=== PATIENT | male | born 1975 | race Caucasian/White ===

== ENCOUNTER 2017-09-30 13:14 | Outpatient (CLI) | payer OTHER ==
--- NOTE | 2017-09-30 16:19 | MRI Report ---
EXAM: MRI LUMBAR SPINE WITHOUT CONTRAST EXAM DATE: 09/30/2017 02:26 PM. CLINICAL HISTORY: Chronic burning pain in the low back and sacral region. COMPARISON: None. TECHNIQUE: Multiplanar, multisequence T1-weighted and fluid-sensitive sequences of the lumbar spine f rom T12 to S1 without contrast. Other: None. FINDINGS: Spinal Cord: The conus terminates at L1. The conus medullaris and cauda equina are unremarkable. Alignment: Grade 2 L5 on S1 spondylolisthesis. Slight L4 on L5 retrolisthesis. Bone Marrow: Five [id number] lumbar vertebral bodies are assumed. Bilateral L5 spondylolysis. No acute vertebral body collapse. Prominent mixed signal degenerative endplate signal changes at L5-S1. Much less prominent degenerative endplate signal changes with Schmorl's nodes at the L2 inferior end plate. Disk Levels/Facets: T12-L1: Unremarkable. L1-L2: Unremarkable. L2-L3: Mild degenerative disk disease. Minimal broad-based bulge. No stenosis. L3-L4: Unremarkable. L4-L5: Mild to moderate degenerative disk disease. Minimal facet arthropathy. Shallow broad-based pos terior disk protrusion with annular fissure but no focal nerve root compression or significant stenos is. L5-S1: Bilateral L5 spondylolysis. Grade 2 L5 on S1 spondylolisthesis. Moderate to marked secondary L 5-S1 level degenerative disk disease. Severe deformity and stenosis of both neural foramina. Patent c entral canal. Minimal facet arthropathy. Musculature: Normal. No edema or fatty atrophy. Other: None. IMPRESSION: 1. Prominent degenerative disk disease at L5-S1 where there is a grade 2 L5 on S1 spondylolisthesis a nd bilateral L5 spondylolysis. 2. Severe stenosis and deformity of the L5-S1 neural foramina. 3. Degenerative disk disease at L4-L5 with posterior disk protrusion with annular fissure but no sign ificant stenosis at this level. Comment: The following findings are so common in adults without low back pain that while we report th eir presence, they must be interpreted with caution and in the context of the clinical situation. (Re amol Powell et al, Spine 2001) Prevalence of findings in patients without low back pain: Disk degeneration (any evidence): 92% Disk desiccation/T2 signal loss: 83% Disk height loss: 56% Disk bulge: 64% Disk protrusion: 32% Annular tear/high intensity zone: 38% [facility] Referring Provider Line: [phone] SITE ID: [id number]
--- NOTE | 2017-10-01 15:38 | MRI Report ---
EXAM: MRI SACRUM/SI JOINTS WITHOUT CONTRAST EXAM DATE: 09/30/2017 02:10 PM. CLINICAL HISTORY: Chronic burning pain in the low back and sacral area. Spondylolisthesis. COMPARISON: None. TECHNIQUE: Multiplanar, multisequence T1-weighted and fluid-sensitive sequences of the sacrum/sacroil iac joints without contrast. Other: None. FINDINGS: Lower lumbar spine: Approximately 1.3 cm anterior subluxation L5 on S1 with small amount of diskogeni c endplate edema and prominent marginal osteophytes. Bilateral L5 pars defects. Marrow signal within the remainder of the sacrum within normal limits. Sacroiliac joints appear symmetric and unremarkable . No joint effusion or abnormal joint space widening. No erosive change. Muscular tendinous structures: No evidence of significant muscle edema, atrophy or fatty replacement within the [id number]. Visualized portions of the sciatic nerves appear symmetric and within samuel l limits. IMPRESSION: 1. Grade 2 L5-S1 spondylolisthesis. 2. Otherwise normal appearance of the sacrum and sacroiliac joints. [facility] MUSCULOSKELETAL RADIOLOGY SECTION Referring Provider Line: [phone] SITE ID: [id number]
== END 2017-09-30 13:15 | disposition home or self-care (01) ==
LOC: DI 13:14
PROVIDERS: ATTEND General Practice
DX: M51.36 Other intervertebral disc degeneration, lumbar region (principal); M47.896 Other spondylosis, lumbar region; M47.897 Other spondylosis, lumbosacral region; M51.37 Other intervertebral disc degeneration, lumbosacral region; M43.17 Spondylolisthesis, lumbosacral region; M51.26 Other intervertebral disc displacement, lumbar region
CPT/HCPCS: 72148; 72195

== ENCOUNTER 2021-08-13 11:07 | Day surgery (SDC) | payer OTHER, BC ==
[2021-08-13 11:34] LABS: BASOPHILS # (AUTO) 0.1 10^3/uL (0.0-0.1); BASOPHILS % (AUTO) 0.5 %; EOSINOPHILS # (AUTO) 0.1 10^3/uL (0.0-0.7); EOSINOPHILS % (AUTO) 0.5 %; HCT - HEMATOCRIT 44.3 % (42.0-52.0); HGB - HEMOGLOBIN 15.7 g/dL (14.0-18.0); LYMPHOCYTES # (AUTO) 1.9 10^3/uL (1.5-3.5); LYMPHOCYTES % (AUTO) 11.7 %; MEAN CORPUSCULAR HEMOGLOBIN 32.2 pg (27.0-31.0); MEAN CORPUSCULAR HGB CONC 35.4 g/dL (32.0-36.0); MONOCYTES # (AUTO) 0.9 10^3/uL (0.0-1.0); MONOCYTES % (AUTO) 5.5 %; NEUTROPHILS # (AUTO) 13.3 10^3/uL (1.5-6.6); NEUTROPHILS % (AUTO) 81.5 %; PLT - PLATELET COUNT 261 10^3/uL (130-450); RED BLOOD COUNT 4.87 10^6/uL (4.70-6.10); RED CELL DISTRIBUTION WIDTH 12.2 % (12.0-15.0); WHITE BLOOD COUNT 16.3 x10^3/uL (4.8-10.8)
[2021-08-13 11:35] LABS: BILIRUBIN,URINE NEGATIVE (NEGATIVE); CLARITY,URINE CLEAR (CLEAR); GLUCOSE, URINE (UA) NEGATIVE (NEGATIVE); KETONES,URINE (UA) NEGATIVE (NEGATIVE); LEUKOCYTE ESTERASE, URINE NEGATIVE (NEGATIVE); NITRITE,URINE NEGATIVE (NEGATIVE); OCCULT BLOOD,URINE NEGATIVE (NEGATIVE); PROTEIN,URINE NEGATIVE (NEGATIVE); UROBILINOGEN,URINE 0.2 (NORMAL) E.U./dL (NORMAL)
[2021-08-13 11:47] LABS: ALBUMIN 4.8 g/dL (3.2-5.5); ALBUMIN/GLOBULIN RATIO 1.4 (1.0-2.2); BILIRUBIN,TOTAL 0.9 mg/dL (0.2-1.0); CALCIUM 9.5 mg/dL (8.5-10.3); CREATININE 1.1 mg/dL (0.6-1.2); TOTAL PROTEIN 8.2 g/dL (6.7-8.2)
--- NOTE | 2021-08-13 13:14 | ED Physician Documentation ---
PD HPI ABD PAIN - Stated complaint Stated Complaint: ABDOMINAL PAIN - Chief complaint Chief Complaint: Abd Pain - History obtained from History obtained from: Patient - Additional information Additional information: The patient comes to the emergency department chief complaint of right lower quadrant abdominal pain that started earlier today after he had a bowel movement. The patient states he had been feeling fairly well, but since the pain began, and the patient has had a sense of chills. He states pain is keeps getting worse. He does not have any history of surgical procedures on his abdomen. No history of kidney stones. Patient denies any stool changes or blood in his urine. No dysuria. He states he is otherwise fairly healthy. No other complaints at this time. He states that hurts a lot if he laughs or coughs. Review of Systems Ten Systems: 10 systems reviewed and negative Constitutional: reports: Reviewed and negative Eyes: reports: Reviewed and negative Ears: reports: Reviewed and negative Nose: reports: Reviewed and negative Throat: reports: Reviewed and negative Cardiac: reports: Reviewed and negative Respiratory: reports: Reviewed and negative GI: reports: Abdominal Pain. denies: Nausea, Vomiting : reports: Reviewed and negative Skin: reports: Reviewed and negative Musculoskeletal: reports: Reviewed and negative Neurologic: reports: Reviewed and negative Psychiatric: reports: Reviewed and negative Endocrine: reports: Reviewed and negative Immunocompromised: reports: Reviewed and negative PD PAST MEDICAL HISTORY - Present Medications Home Medications: Ambulatory Orders Medication Instructions Recorded Confirmed No Known Home Medications 08/13/21 08/13/21 - Allergies Allergies/Adverse Reactions: Allergies Allergy/AdvReac Type Severity Reaction Status Date / Time No Known Drug Allergies Allergy Verified 08/13/21 11:19 PD ED PE NORMAL - Vitals Vital signs reviewed: Yes - General General: Alert and oriented X 3, No acute distress, Well developed/nourished, Other (The patient appears mildly uncomfortable otherwise in no distress.) - HEENT HEENT: Atraumatic, PERRL, EOMI, Moist mucous membranes - Neck Neck: Supple, no meningeal sign - Cardiac Cardiac: RRR, No murmur, Strong equal pulses - Respiratory Respiratory: No respiratory distress, Clear bilaterally - Abdomen Abdomen: Soft, Non distended, Other (Moderate tenderness without rebound or guarding right lower quadrant) - Back Back: No CVA TTP - Derm Derm: Normal color, Warm and dry, No rash - Extremities Extremities: No deformity, No edema, No calf tenderness / cord - Neuro Neuro: Alert and oriented X 3, rib puller 2-12 intact, Normal speech, Other (Grossly intact) - Psych Psych: Normal mood, Normal affect Results - Vitals Vitals: Vital Signs - 24 hr 08/13/21 08/13/21 11:16 13:16 Temperature 36.7 C 37.1 C Heart Rate 90 93 Respiratory 16 16 Rate Blood Pressure 145/101 H 141/90 H O2 Saturation 98 98 Oxygen O2 Source Room air - Labs Labs: Laboratory Tests 08/13/21 08/13/21 08/13/21 11:27 11:29 11:29 WBC 16.3 H RBC 4.87 Hgb 15.7 Hct 44.3 MCV 91.0 MCH 32.2 H MCHC 35.4 RDW 12.2 Plt Count 261 MPV 9.0 Neut # (Auto) 13.3 H Lymph # (Auto) 1.9 [place] # (Auto) 0.9 Eos # (Auto) 0.1 Baso # (Auto) 0.1 Absolute Nucleated RBC 0.00 Nucleated RBC % 0.0 Sodium 140 Potassium 4.0 Chloride 100 L Carbon Dioxide 29 Anion Gap 11.0 BUN 18 Creatinine 1.1 Estimated GFR (MDRD) 73 L Glucose 90 Calcium 9.5 Total Bilirubin 0.9 AST 40 ALT 56 Alkaline Phosphatase 53 Total Protein 8.2 Albumin 4.8 Globulin 3.4 Albumin/Globulin Ratio 1.4 Lipase 26 Urine Color YELLOW Urine Clarity CLEAR Urine pH 5.0 Ur Specific [place] 1.025 Urine Protein NEGATIVE Urine Glucose (UA) NEGATIVE Urine Ketones NEGATIVE Urine Occult Blood NEGATIVE Urine Nitrite NEGATIVE Urine Bilirubin NEGATIVE Urine Urobilinogen 0.2 (NORMAL) Ur Leukocyte Esterase NEGATIVE Ur Microscopic Review NOT INDICATED Urine Culture Comments NOT INDICATED - Rads (name of study) CT abdomen and pelvis Radiology: Final report received, EMP read indepedently, See rad report (Acute appendicitis) PD MEDICAL DECISION MAKING - ED course Complexity details: reviewed results, re-evaluated patient, considered dif ferential, d/w patient ED course: The patient was significantly tender in the right lower quadrant, and laboratory studies showed an elevated white blood cell count of 16,000. I felt the patient should have a CT scan of the abdomen and pelvis to evaluate for especially appendicitis, but also for kidney stone and other potential pathology. The patient declined symptomatic management. CT scan showed findings consistent with appendicitis. I spoke with Dr. Leger, who agreed to come and see the patient in the emergency department, with plan for admission and OR. I have spoke with patient about his findings and plan and he is agreeable. He states he is feeling fairly well and still does not want any symptomatic intervention. Departure - Departure Disposition: ED Place in Observation Clinical Impression: Acute appendicitis Qualifiers: Acute appendicitis type: with localized peritonitis Appendicitis gangrene presence: without gangrene Appendicitis perforation presence: without perforati on Appendicitis abscess presence: without abscess Qualified Code(s): K35.30 - Acute appendicitis with localized peritonitis, without perforation or gangrene Condition: Serious
[2021-08-13] MEDS ORDERED: IOVERSOL 320 100 ML VIAL IVP ONE ×2 (13:23→13:33)
--- NOTE | 2021-08-13 13:49 | CT Report ---
PROCEDURE: Abdomen/Pelvis W INDICATIONS: RLQ abd pain CONTRAST: IV CONTRAST: Optiray 320 ml: 100 PO CONTRAST: *NO PO CONTRAST TECHNIQUE: After the administration of intravenous contrast, 5 mm thick sections acquired from the diaphragms to the symphysis. 5 mm thick coronal and sagittal reformats were acquired. For radiation dose reducti on, the following was used: automated exposure control, adjustment of mA and/or kV according to shannan ent size. COMPARISON: None. FINDINGS: Image quality: Excellent. Lung bases: Lung bases are clear. Heart size is normal. Solid organs: Liver and spleen are normal in size and enhancement. Gallbladder unremarkable. Bilia ry system is non dilated. Pancreas enhances normally. No adrenal nodules. Kidneys demonstrate norm al size and enhancement, without hydronephrosis. Peritoneum and bowel: The appendix is mildly dilated up to 8 mm in maximum transverse dimension, with mild wall thickening up to 3 mm and mucosal hyperenhancement. Adjacent fat stranding and small volum e free fluid in the right lower quadrant. Nodes and vessels: No retroperitoneal or mesenteric adenopathy by size criteria. Aorta and inferior vena cava are normal in size. Genitourinary: Bladder wall thickness is normal. Miscellaneous: No inguinal hernias or adenopathy. Bones: Bilateral L5 pars defects with grade 2 spondylolisthesis of L5 on S1 measuring 1.3 cm. Associa alice severe bilateral or neural foraminal stenosis and probable moderate to severe spinal canal narrow ing. No suspicious lytic or blastic osseous lesion. IMPRESSION: Inflammatory changes surrounding the appendix with mild appendiceal dilatation and mucosal hyperenhan cement. Findings are consistent with acute appendicitis. Grade 2 spondylolisthesis of L5 on S1 with associated severe neural foraminal stenosis and probable m oderate spinal canal stenosis. Reviewed by: Kale Reed MD on 08/13/2021 1:48 PM PST Approved by: Kale Reed MD on 08/13/2021 1:48 PM PST Station ID: [id number]
[2021-08-13 15:41] LABS: CORONAVIRUS 229E-RESP PCR NOT DETECTED; CORONAVIRUS HKU1-RESP PCR NOT DETECTED; CORONAVIRUS NL63-RESP PCR NOT DETECTED; CORONAVIRUS OC43-RESP PCR NOT DETECTED
[2021-08-13 15:43] LABS: B. PARAPERTUSSIS- RESP PCR PAN NOT DETECTED; B. PERTUSSIS- RESP PCR PANEL NOT DETECTED; C. PNEUMONIAE- RESP PCR PANEL NOT DETECTED; HUMAN METAPNEUMOVIRUS NOT DETECTED; INFLUENZA A- RESP PCR PANEL NOT DETECTED; INFLUENZA B - RESP PCR PANEL NOT DETECTED; M. PNEUMONIAE- RESP PCR PANEL NOT DETECTED; PARAINFLUENZA VIRUS 1 NOT DETECTED; PARAINFLUENZA VIRUS 2 NOT DETECTED; PARAINFLUENZA VIRUS 3 NOT DETECTED; PARAINFLUENZA VIRUS 4 NOT DETECTED; RHINOVIRUS/ENTEROVIRUS NOT DETECTED; RSV- RESP PCR PANEL NOT DETECTED; SARS-CoV-2 -RESP PCR PANEL DETECTED
--- NOTE | 2021-08-13 16:05 | HISTORY & PHYSICAL EXAMINATION ---
Chief Complaint - Chief Complaint Chief Complaint: Abdominal pain History of Present Illness - History of Present Illness HPI Comment/Other: 45yo man with no medical problems who presents with right lower quadrant pain. The pain started this morning, is sharp, and has been worsening since then. No alleviating or aggravating factors. Some associated nausea and anorexia. No prior abdominal surgery. History - Past Medical History Cardiovascular: reports: None Respiratory: reports: None Neuro: reports: None Endocrine/Autoimmune: reports: None GI: reports: None STOCK TRADER: reports: None : reports: None HEENT: reports: None, Other (Tonsillectomy in past) Psych: reports: None Musculoskeletal: reports: Other (Left wrist surgery for trapped nerve) Derm: reports: None - Past Surgical History General: reports: Other (Tonsillectomy, nasal septum surgery, and left wrist surgery) - Family & Social History Family History: Other family: Alive and Well (No cancers or genetic diseases) Living arrangement: At home Social History Notes: Works for [employer] on [place] - Substance History Use: Uses substance without health or social issues: Alcohol (Occasional alcohol) Meds/Allgy - Home Medications Home Medications: Ambulatory Orders Medication Instructions Recorded Confirmed No Known Home Medications 08/13/21 08/13/21 - Allergies Allergies/Adverse Reactions: Allergies Allergy/AdvReac Type Severity Reaction Status Date / Time No Known Drug Allergies Allergy Verified 08/13/21 11:19 Review of Systems - Gastrointestinal Gastrointestinal: reports: Abdominal pain - All Other Systems All Other Systems: reports: Reviewed and negative Exam - Vital Signs Reviewed Vital Signs: Yes Vital Signs: Vital Signs x48h Temp Pulse Resp BP Pulse Ox 08/13/21 15:00 106 H 14 130/84 H 96 08/13/21 13:16 37.1 C 93 16 141/90 H 98 08/13/21 11:16 36.7 C 90 16 145/101 H 98 - Physical Exam General Appearance: positive: No acute distress Eyes Bilateral: positive: Normal inspection ENT: positive: ENT inspection nml Neck: positive: Nml inspection Respiratory: positive: No respiratory distress Cardiovascular: positive: Regular rate & rhythm Abdomen: positive: Other (Soft, non distended, tender in RLQ) Skin: positive: Color nml, No rash Extremities: positive: Full ROM, Nml appearance Neurologic/Psychiatric: positive: Oriented x3, CN's nml (2-12) Conclusion/Plan - Problem List (1) Acute appendicitis Conclusion/Plan: To OR for laparoscopic (possible open) appendectomy Risks and benefits discussed with patient, and informed consent obtained Start antibiotics Qualifiers: Acute appendicitis type: with localized peritonitis Appendicitis gangrene presence: without gangrene Appendicitis perforation presence: without perforation Appendicitis abscess presence: without abscess Qualified Code(s): K35.30 - Acute appendicitis with localized peritonitis, without perforation or gangrene - Lab Results Fish Bones: 08/13/21 11:29 08/13/21 11:29 - Diagnostic Imaging Results Diagnostic Imaging Results: positive: Final report reviewed, Discussed with radiologist (Acute appendicitis with surrounding fat stranding)
[2021-08-13] MEDS ORDERED: fentaNYL 100 MCG/2 ML VIAL ONE (16:43)
[2021-08-13] MEDS ORDERED: MIDAZOLAM 2 MG/2 ML VIAL ONE (16:43)
[2021-08-13] MEDS ORDERED: ROCURONIUM 50 MG/5 ML VIAL ONE ×2 (16:43→17:43)
[2021-08-13] MEDS ORDERED: PROPOFOL 200 MG/20 ML VIAL IVP ONE (16:43)
[2021-08-13] MEDS ORDERED: LIDOCAINE-MPF 2% 5 ML VIAL ONE (16:43)
[2021-08-13] MEDS ORDERED: MORPHINE 2 MG/ML CARPUJECT IVP PRN (16:47)
[2021-08-13] MEDS ORDERED: NALOXONE 0.4 MG/ML VIAL IVP PRN (16:47)
[2021-08-13] MEDS ORDERED: ATROPINE ABBOJECT 1 MG/10 ML SYRINGE IVP PRN (16:47)
[2021-08-13] MEDS ORDERED: fentaNYL 100 MCG/2 ML VIAL IVP PRN (16:47)
[2021-08-13] MEDS ORDERED: HYDROmorphone 0.5 MG/0.5 ML SYRINGE IVP PRN (16:47)
[2021-08-13] MEDS ORDERED: ONDANSETRON 4 MG/2 ML VIAL IVP PRN ×2 (16:47→18:18)
--- NOTE | 2021-08-13 16:47 | ANESTHESIA ---
Pre-Anesthesia VS, & Labs - Diagnosis Acute Appendicitis - Procedure Lap Appy Vital Signs: Temp Pulse Resp BP Pulse Ox 37.1 C 101 H 15 124/80 96 08/13/21 13:16 08/13/21 16:00 08/13/21 16:00 08/13/21 16:00 08/13/21 16:00 Height: 5 ft 8 in Weight (kg): 97.522 kg Body Mass Index: 32.6 BMI Classification: Obese - NPO >8 hours - Lab Results Current Lab Results: Laboratory Tests 08/13/21 11:29: Sodium 140, Potassium 4.0, Chloride 100 L, Carbon Dioxide 29, Anion Gap 11.0, BUN 18, Creatinine 1.1, Estimated GFR (MDRD) 73 L, Glucose 90, Calcium 9.5, Total Bilirubin 0.9, AST 40, ALT 56, Alkaline Phosphatase 53, Total Protein 8.2, Albumin 4.8, Globulin 3.4, Albumin/Globulin Ratio 1.4, Lipase 26 08/13/21 11:29: WBC 16.3 H, RBC 4.87, Hgb 15.7, Hct 44.3, MCV 91.0, MCH 32.2 H, MCHC 35.4, RDW 12.2, Plt Count 261, MPV 9.0, Neut # (Auto) 13.3 H, Lymph # (Auto) 1.9, [place] # (Auto) 0.9, Eos # (Auto) 0.1, Baso # (Auto) 0.1, Absolute Nucleated RBC 0.00, Nucleated RBC % 0.0 Fish Bones: 08/13/21 11:29 08/13/21 11:29 Home Medications and Allergies Home Medications: Ambulatory Orders No Known Home Medications 08/13/21 No Known Home Medications 08/13/21 Allergies/Adverse Reactions: Allergies Allergy/AdvReac Type Severity Reaction Status Date / Time No Known Drug Allergies Allergy Verified 08/13/21 11:19 Anes History & Medical History - Anesthetic History Anesthesia Complications: reports: No previous complications - Medical History Cardiovascular: reports: None Pulmonary: reports: Sleep apnea (has not used CPAP for last 2 weeks due to recall), Other (Covid positive, patient is vax x3, asymptomatic) Gastrointestinal: reports: None Urinary: reports: None Neuro: reports: None Musculoskeletal: reports: Other (Left wrist surgery for trapped nerve) Endocrine/Autoimmune: reports: None Blood Disorders: reports: None Skin: reports: None Smoking Status: Never smoker Psychosocial: reports: No issues indicated History of Cancer?: No - Surgical History General: reports: Other (Tonsillectomy, nasal septum surgery, and left wrist surgery) Exam General: Alert, Oriented x3, Cooperative, No acute distress Dental: WNL Mouth Openin Fingerbreadth Neck Mobility: Normal Mallampati classification: III Thyromental Distance: 4-6 cm Respiratory: Lungs clear, Normal breath sounds, No respiratory distress, No accessory muscle use Cardiovascular: Regular rate, Normal S1, Normal S2, No murmurs Mental/Cognitive Status: Alert/Oriented X3, Normal for patient Plan Anesthesia Type: General Consent for Procedure(s) Verified and Reviewed: Yes Code Status: Attempt Resuscitation ASA classification: 2-Mild systemic disease Is this case an emergency?: Yes
[2021-08-13] MEDS ORDERED: BUPIVACAINE 0.25% PF 30 ML VIAL ONE (16:48)
[2021-08-13] MEDS ORDERED: LACTATED RINGERS 1,000 ML IV SCH (17:00)
[2021-08-13] MEDS ORDERED: HEPARIN 5,000 UNIT/ML VIAL ONE (17:02)
[2021-08-13] MEDS ORDERED: PIPERACILLIN/TAZOBACTAM 3.375 GM in SODIUM CHLORIDE 0.9% MINIBAG 100 ML IV ONE (17:02)
[2021-08-13] MEDS ORDERED: DEXAMETHASONE 4 MG/ML VIAL ONE (17:21)
[2021-08-13] MEDS ORDERED: ONDANSETRON 4 MG/2 ML VIAL ONE (17:21)
[2021-08-13] MEDS ORDERED: BUPIVACAINE 0.25% PF 30 ML VIAL SUBQ ONE (17:39)
[2021-08-13] MEDS ORDERED: SUGAMMADEX 200 MG/2 ML VIAL IVP ONE (18:14)
[2021-08-13] MEDS ORDERED: KETOROLAC 30 MG/ML VIAL ONE (18:15)
[2021-08-13] MEDS ORDERED: SODIUM CHLORIDE FLUSH 0.9% 10 ML SYRINGE IVP PRN (18:18)
[2021-08-13] MEDS ORDERED: traMADol 50 MG TABLET PO PRN (18:22)
[2021-08-13] MEDS ORDERED: HYDROmorphone 1 MG/ML CARPUJECT ONE (18:22)
[2021-08-13] MEDS ORDERED: LACTATED RINGERS 1,000 ML IV ONE (18:27)
--- NOTE | 2021-08-13 18:31 | OPERATIVE REPORT ---
Operative Report - General Procedure Date: 08/13/21 Planned Procedure: Laparoscopic appendectomy Pre-Op Diagnosis: Acute appendicitis Procedure Performed: Laparoscopic appendectomy Post Op Diagnosis: Acute appendicitis - Procedure Note Primary Surgeon: Alfred Anesthesia Provider: Maegan Anesthesia Technique: General ET tube Estimated Blood Loss (mL): 10 Indications: 45yo man who presented with right lower quadrant pain, and was found to have leukocytosis on labs and imaging consistent with acute appendicitis. Findings: Inflamed appendix Complications: None apparent - Other Other Information/Narrative: The patient was taken to the operating room where preoperative antibiotics were administered, as well as subcutaneous heparin given and SCDs placed. After starting general anesthesia, a al catheter was placed. The abdomen was prepped and draped in the usual fashion. Local anesthesia (0.5% bupivacaine) was administered at the infraumbilical skin. A transverse incision was made and carried down to the fascia, and the peritoneal cavity was entered with Taz technique. A 12mm balloon trocar was placed and pneumoperitoneum achieved. A 5- 30 laparoscope was introduced and the peritoneal contents were inspected. An inflamed appendix was noted in the right lower quadrant. Two more 5mm ports were placed under direct vision in the suprapubic and left lower quadrant and the patient was placed in trendelenburg and right side up. The appendix was grasped and dissected down to the base, requiring some mobilization of the cecum. After creating a window at the base of the appendix, the appendix was taken using two 60mm Endo-CHARLOTTE stapler intestinal loads, and the mesoappendix taken with ligasure energy device. Some simple fluid in the abdomen was suctioned, and the staple lines inspected demonstrating no bleeding or breakdown. The appendix specimen was removed with an endocatch bag, pneumoperitoneum evacuated, and trocars removed. The infraumbilical fascia was closed with 0-vicryl suture and skin closed with 4-0 monocryl and surgical glue. All instrument counts were reported correct. The patient was awakened and taken to the recovery room in good condition.
--- NOTE | 2021-08-13 18:45 | ANESTHESIA POST OP EVALUATION ---
Anesthesia Post Eval - Post Anesthesia Eval Vitals: Last Vital Signs Temp 36.5 C 08/13/21 18:40 Pulse 91 08/13/21 18:40 Resp 13 08/13/21 18:40 BP 132/91 H 08/13/21 18:40 Pulse Ox 90 L 08/13/21 18:40 CV Function Including HR & BP: Stable Pain Control: Satisfactory Nausea & Vomiting: Negative Mental Status: Baseline Respiratory Status: Airway Patent Hydration Status: Satisfactory Anesthesia Complications: None
[2021-08-13] MEDS: ACETAMINOPHEN 500 MG TABLET PO SCH (21:34)
[2021-08-14] MEDS: HEPARIN 5,000 UNIT/ML VIAL SUBQ SCH ×2 (00:39→06:37)
[2021-08-14] MEDS ORDERED: KETOROLAC 15 MG/ML VIAL IVP PRN (01:00)
[2021-08-14] MEDS ORDERED: SODIUM CHLORIDE FLUSH 0.9% 10 ML SYRINGE IVP SCH (01:00)
[2021-08-14] MEDS: ACETAMINOPHEN 500 MG TABLET PO SCH (06:38)
--- NOTE | 2021-08-14 07:39 | PROVIDER PROGRESS NOTE ---
Subjective - General Procedure Date: 08/13/21 Post Op Days: 1 Procedure Performed: Laparoscopic appendectomy - Review of Systems Wound/Incisions: positive: Healing well All Other Systems: positive: Reviewed and negative - Other Other Information/Narrative: Postop pain controlled, and feeling ready for discharge Objective - Patient Data Reviewed Vital Signs: Yes Vital Signs: Vital Signs x48h Temp Pulse Resp BP Pulse Ox 08/14/21 04:56 36.7 C 79 18 114/72 96 08/14/21 00:00 36.7 C 77 18 110/69 95 Weight: Weight 08/12/21 08/13/21 08/14/21 23:59 23:59 23:59 Weight (kg) 97.522 kg Intake & Output: Intake and Output Totals x24h 08/12/21 08/13/21 08/14/21 23:59 23:59 23:59 Intake Total 120 350 Balance 120 350 - Lab Results Lab Results: 08/13/21 11:29 08/13/21 11:29 Other Lab Results: Lab Results x24hrs 08/13/21 08/13/21 08/13/21 Range/Units 14:36 11:29 11:29 WBC 16.3 H (4.8-10.8) x10^3/uL RBC 4.87 (4.70-6.10) 10^6/uL Hgb 15.7 (14.0-18.0) g/dL Hct 44.3 (42.0-52.0) % MCV 91.0 (80.0-94.0) fL MCH 32.2 H (27.0-31.0) pg MCHC 35.4 (32.0-36.0) g/dL RDW 12.2 (12.0-15.0) % Plt Count 261 (130-450) 10^3/uL MPV 9.0 (7.4-11.4) fL Neut # (Auto) 13.3 H (1.5-6.6) 10^3/uL Lymph # (Auto) 1.9 (1.5-3.5) 10^3/uL [place] # (Auto) 0.9 (0.0-1.0) 10^3/uL Eos # (Auto) 0.1 (0.0-0.7) 10^3/uL Baso # (Auto) 0.1 (0.0-0.1) 10^3/uL Absolute Nucleated RBC 0.00 x10^3/uL Nucleated RBC % 0.0 /100WBC Sodium 140 (135-145) mmol/L Potassium 4.0 (3.5-5.0) mmol/L Chloride 100 L (101-111) mmol/L Carbon Dioxide 29 (21-32) mmol/L Anion Gap 11.0 (6-13) BUN 18 (6-20) mg/dL Creatinine 1.1 (0.6-1.2) mg/dL Estimated GFR (MDRD) 73 L (>89) Glucose 90 (70-100) mg/dL Calcium 9.5 (8.5-10.3) mg/dL Total Bilirubin 0.9 (0.2-1.0) mg/dL AST 40 (10-42) IU/L ALT 56 (10-60) IU/L Alkaline Phosphatase 53 (42-121) IU/L Total Protein 8.2 (6.7-8.2) g/dL Albumin 4.8 (3.2-5.5) g/dL Globulin 3.4 (2.1-4.2) g/dL Albumin/Globulin Ratio 1.4 (1.0-2.2) Lipase 26 (22-51) U/L Urine Color Urine Clarity (CLEAR) Urine pH (5.0-7.5) PH Ur Specific [place] (1.002-1.030) Urine Protein (NEGATIVE) mg/dL Urine Glucose (UA) (NEGATIVE) mg/dL Urine Ketones (NEGATIVE) mg/dL Urine Occult Blood (NEGATIVE) Urine Nitrite (NEGATIVE) Urine Bilirubin (NEGATIVE) Urine Urobilinogen (NORMAL) E.U./dL Ur Leukocyte Esterase (NEGATIVE) Ur Microscopic Review Urine Culture Comments Nasal Adenovirus (PCR) NOT DETECTED Nasal B. parapertussis DNA (PCR) NOT DETECTED Nasal Coronavir 229E PCR NOT DETECTED Nasal Coronavir HKU1 PCR NOT DETECTED Nasal Coronavir NL63 PCR NOT DETECTED Nasal Coronavir OC43 PCR NOT DETECTED Nasal Enterovir/Rhinovir PCR NOT DETECTED Nasal Influenza B PCR NOT DETECTED Nasal Influenza A PCR NOT DETECTED Nasal Parainfluen 1 PCR NOT DETECTED Nasal Parainfluen 2 PCR NOT DETECTED Nasal Parainfluen 3 PCR NOT DETECTED Nasal Parainfluen 4 PCR NOT DETECTED Nasal RSV (PCR) NOT DETECTED Nasal B.pertussis DNA PCR NOT DETECTED Nasal C.pneumoniae (PCR) NOT DETECTED [place] Human Metapneumo PCR NOT DETECTED Nasal M.pneumoniae (PCR) NOT DETECTED Nasal SARS-CoV-2 (PCR) DETECTED A 08/13/21 Range/Units 11:27 WBC (4.8-10.8) x10^3/uL RBC (4.70-6.10) 10^6/uL Hgb (14.0-18.0) g/dL Hct (42.0-52.0) % MCV (80.0-94.0) fL MCH (27.0-31.0) pg MCHC (32.0-36.0) g/dL RDW (12.0-15.0) % Plt Count (130-450) 10^3/uL MPV (7.4-11.4) fL Neut # (Auto) (1.5-6.6) 10^3/uL Lymph # (Auto) (1.5-3.5) 10^3/uL [place] # (Auto) (0.0-1.0) 10^3/uL Eos # (Auto) (0.0-0.7) 10^3/uL Baso # (Auto) (0.0-0.1) 10^3/uL Absolute Nucleated RBC x10^3/uL Nucleated RBC % /100WBC Sodium (135-145) mmol/L Potassium (3.5-5.0) mmol/L Chloride (101-111) mmol/L Carbon Dioxide (21-32) mmol/L Anion Gap (6-13) BUN (6-20) mg/dL Creatinine (0.6-1.2) mg/dL Estimated GFR (MDRD) (>89) Glucose (70-100) mg/dL Calcium (8.5-10.3) mg/dL Total Bilirubin (0.2-1.0) mg/dL AST (10-42) IU/L ALT (10-60) IU/L Alkaline Phosphatase (42-121) IU/L Total Protein (6.7-8.2) g/dL Albumin (3.2-5.5) g/dL Globulin (2.1-4.2) g/dL Albumin/Globulin Ratio (1.0-2.2) Lipase (22-51) U/L Urine Color YELLOW Urine Clarity CLEAR (CLEAR) Urine pH 5.0 (5.0-7.5) PH Ur Specific [place] 1.025 (1.002-1.030) Urine Protein NEGATIVE (NEGATIVE) mg/dL Urine Glucose (UA) NEGATIVE (NEGATIVE) mg/dL Urine Ketones NEGATIVE (NEGATIVE) mg/dL Urine Occult Blood NEGATIVE (NEGATIVE) Urine Nitrite NEGATIVE (NEGATIVE) Urine Bilirubin NEGATIVE (NEGATIVE) Urine Urobilinogen 0.2 (NORMAL) (NORMAL) E.U./dL Ur Leukocyte Esterase NEGATIVE (NEGATIVE) Ur Microscopic Review NOT INDICATED Urine Culture Comments NOT INDICATED Nasal Adenovirus (PCR) Nasal B. parapertussis DNA (PCR) Nasal Coronavir 229E PCR Nasal Coronavir HKU1 PCR Nasal Coronavir NL63 PCR Nasal Coronavir OC43 PCR Nasal Enterovir/Rhinovir PCR Nasal Influenza B PCR Nasal Influenza A PCR Nasal Parainfluen 1 PCR Nasal Parainfluen 2 PCR Nasal Parainfluen 3 PCR Nasal Parainfluen 4 PCR Nasal RSV (PCR) Nasal B.pertussis DNA PCR Nasal C.pneumoniae (PCR) [place] Human Metapneumo PCR Nasal M.pneumoniae (PCR) Nasal SARS-CoV-2 (PCR) - Current Medications Current Medications: Current Medications Generic Name Dose Route Start Last Admin Trade Name Freq PRN Reason Stop Dose Admin Acetaminophen 1,000 mg 08/13/21 22:00 08/14/21 06:38 Acetaminophen 500 Mg Tablet PO 1,000 mg Q8HR WILLARD Administration Heparin Sodium (Porcine) 5,000 unit 08/14/21 01:00 08/14/21 06:37 Heparin 5,000 Unit/Ml Vial SUBQ 5,000 unit TID WILLARD Administration Ketorolac Tromethamine 15 mg 08/14/21 01:00 08/14/21 00:42 Ketorolac 15 Mg/Ml Vial IVP 08/19/21 00:59 15 mg Q6H PRN Administration PAIN Ondansetron HCl 4 mg 08/13/21 18:18 08/13/21 19:25 Ondansetron 4 Mg/2 Ml Vial IVP 4 mg Q6H PRN Administration Nausea / Vomiting Sodium Chloride 10 ml 08/14/21 01:00 08/13/21 19:25 Sodium Chloride Flush 0.9% 10 Ml Syringe IVP 10 ml 0100,0900,1700 WILLARD Administration Sodium Chloride 10 ml 08/13/21 18:18 08/13/21 20:07 Sodium Chloride Flush 0.9% 10 Ml Syringe IVP 10 ml PRN PRN Administration NEEDED PER PROVIDER ORDERS - Physical Exam Wound/Incisions: positive: Healing well Abdomen: positive: Other (Incisions c/d/i, appropriately tender) Impression/Plan - Problem List Problem List: 45M POD1 s/p laparoscopic appendectomy Discharge home with tylenol, ibuprofen (OTC) and ultram PRN F/u in surgery clinic in 2 weeks
--- NOTE | 2021-08-14 07:42 | Discharge Plan ---
Discharge Plan Problem Reviewed?: Yes Disposition: Home, Self Care Condition: Good Prescriptions: traMADol [Ultram] 50 mg PO Q6H PRN #10 tablet PRN Reason: Pain Diet: Regular Activity Restrictions: No heavy lifting Shower Restrictions: No (Shower daily. No baths or hot tubs/swimming for 2 weeks.) Driving Restrictions: Yes (No driving while taking Tramadol or other narcotics) Additional Instructions or Follow Up instructions: Follow up in general surgery clinic in 2 weeks No Smoking: If you smoke, Please STOP! Call for help. Follow-up with: Rhys Raya MD [Primary Care Provider] -
[2021-08-14 08:02] VITALS: BP 127/82
== END 2021-08-14 09:10 | disposition home or self-care (01) ==
LOC: ED 11:07 → SDS 16:00 → MS3 19:00 → SDS 08-14 09:10
PROVIDERS: ATTEND Surgery
PROC: 0DTJ4ZZ Resection of Appendix, Percutaneous Endoscopic Approach (ICD-10-PCS; principal; 2021-08-13 17:00)
DX: K35.30 Acute appendicitis with localized peritonitis, without perforation or gangrene (principal); Z20.822 Contact with and (suspected) exposure to COVID-19; E66.9 Obesity, unspecified; Z68.32 Body mass index [BMI] 32.0-32.9, adult
CPT/HCPCS: 0202U; 36415; 44970; 74177; 80053; 81003; 83690; 85025; 99214; 99284; 99285; A9270; J1170; J7120; Q9967; 81001; 87086